=== PATIENT | female | born 1975 | race Caucasian/White ===

== ENCOUNTER → 2021-06-30 11:22 | Outpatient (REF) | payer OTHER, SELFPAY | LOC: ANHLAB 11:22 | PROVIDERS: PCP Family Medicine; Visit Provider Nurse Practitioner | DX: L72.0 Epidermal cyst (principal) | CPT/HCPCS: 88304 ==

== ENCOUNTER 2022-01-11 16:50 | Outpatient (CLI) | payer OTHER, SELFPAY ==
--- NOTE | ~2022-01-11 | XR_ITS ---
EXAM: XR foot RT min 3V DATE: 01/11/2022 17:07 HISTORY: M79.673 - Pain in unspecified foot, lat Rt foot s/p running . COMPARISON: None available. FINDINGS: Normal mineralization. No fracture or dislocation. No lytic or blastic lesion. Plantar ent hesopathy. Mild hallux valgus. No erosion or periosteal change. Soft tissues within normal limits. IMPRESSION: No acute osseous finding in the right foot. Reviewed, dictated and finalized at location K.
== END 2022-01-11 16:51 | disposition home or self-care (01) ==
LOC: ANHIMG 16:54
PROVIDERS: PCP Family Medicine; Visit Provider Physician Assistant
DX: M79.673 Pain in unspecified foot (principal)
CPT/HCPCS: 73630

== ENCOUNTER 2022-04-07 16:03 | Outpatient (CLI) | payer OTHER, SELFPAY ==
--- NOTE | 2022-04-07 16:10 | ECG_ITS ---
Measurements Intervals [place] Rate: 78 P: 48 NC: 180 QRS: 25 QRSD: 94 T: 36 QT: 380 QTc: 435 Interpretive Statements SINUS RHYTHM INCOMPLETE RIGHT BUNDLE BRANCH BLOCK BORDERLINE ECG NO PREVIOUS ECG AVAILABLE FOR COMPARISON Electronically Signed On 04-07-2022 17:30:19 [facility] by Woo Cho D.O.
== END 2022-04-07 16:04 | disposition home or self-care (01) ==
LOC: ANHLAB 16:05
PROVIDERS: PCP Family Medicine; Visit Provider Family Medicine
DX: R79.82 Elevated C-reactive protein (CRP) (principal); R07.9 Chest pain, unspecified; I45.10 Unspecified right bundle-branch block
CPT/HCPCS: 93005

== ENCOUNTER 2022-10-16 00:38 | Day surgery (SDC) | payer OTHER, SELFPAY ==
[2022-10-04 14:07] VITALS: BMI 32.2
[2022-10-16 07:33] VITALS: BP 134/87; PULSE 79; RESP 18; TEMP 36.3; O2SAT 100; BMI 31.7
[2022-10-16] MEDS: LACTATED RINGERS 1,000 ML 150 ML IV CONT (07:43)
--- NOTE | 2022-10-16 08:01 | P.PNAN_ITS ---
Anes - Initial Pre Proc Eval Procedure: Operation Date: 10/16/22 08:30 Proposed Procedures p Screening Colonoscopy - Ankush Lacy MD Date/Time: 10/16/22 08:01 Surgeon: Ankush Lacy MD Pre Op Diagnosis: neoplasm screening Patient Data Age: 47 Gender: F Height: 1.6 m Weight: 81.2 kg Last Vital Signs Temp 36.3 C L 10/16/22 07:33 Pulse 79 10/16/22 07:33 Resp 18 10/16/22 07:33 BP 134/87 10/16/22 07:33 Pulse Ox 100 10/16/22 07:33 O2 Del Method Room Air 10/16/22 07:33 Allergies Allergy/AdvReac Type Severity Reaction Status Date / Time metoclopramide [From Reglan] Allergy Intermediate Anxiety Verified 10/16/22 07:31 meperidine Allergy Unknown UNKNOWN Verified 10/16/22 07:31 MEPERIDINE HCL Allergy Unknown UNKNOWN Uncoded 10/16/22 07:31 Home Medications Medication Instructions Recorded Confirmed Type Ozempic 1 mg IM WEEKLY 10/04/22 10/16/22 History Patient hx anesthesia problems: none Family hx anesthesia problems: none Results Review: All pre-operative results and documents have been reviewed as part of the pre- operative evaluation. [facility], LAT[facility] Past Medical History Medical History Anxiety Hx of migraines Rosacea Family History Family History Grandparent Family history of osteoporosis Family history of migraine headaches Mother Patient's mother is in good health Family history of malignant neoplasm of skin, Onset Age: 72 Father Patient's father is Family history of heart disease in male family member before age 55 Social History Social History Smoking status: Never smoker Second hand tobacco smoke exposure: Yes Alcohol intake: current Drinks per week: 2 Substance use: never Substance use type: does not use Lack of Transportation: No Lack of Food: Never True Current Housing: I Have Housing Concerned About Future Housing: No Difficulty Paying Gas/Electric Bills: No Difficulty Paying for Meds: No Currently Unemployed: No Education: Master's Degree or Higher Difficulty w/ Childcare or Family Care: No Living arrangements: with family Gender identity (if verbalized by the patient): Female Spiritual care concerns: No Anes - Eval Final PreProcedure Day of Procedure 10/16/22 08:01 Patient weight: obese Heart: regular rate and rhythm Lungs: clear to auscultation Airway: Mallampati scale class II Neurological: alert and oriented Last oral intake: >/= 8 hours ASA classification: II Emergent: no Anesthetic plan: proceed Anesthesia type and monitoring: general GIVS and standard monitoring Results Review: All pre-operative results and documents have been reviewed as part of the pre- operative evaluation. Informed Consent: The patient's anesthetic plan and its attendant risks and benefits were discussed with the patient/family/POA. Questions were solicited and answers provided to the satisfaction of the patient/family/POA.
--- NOTE | 2022-10-16 08:34 | PM.HPGS ---
History of Present Illness History of Present Illness Consent: Risks, benefits, and alternatives have been discussed and questions answered. Patient agrees to proceed with procedure. Chief complaint: neoplasm screening Narrative: Steph Fox is a 47 year old female here for first screening colonoscopy Review of Systems Constitutional: Constitutional: Denies headache(s) and Denies weakness Eyes: Eyes: Denies blurry vision ENT: Reports Normal hearing present, Denies headache(s) and Denies neck pain Cardiovascular: Cardiovascular: Denies chest pain and Denies dyspnea Respiratory: Respiratory: Denies dyspnea Gastrointestinal: Gastrointestinal: Reports no additional gastrointestinal complaints Genitourinary: Genitourinary: Denies dysuria Musculoskeletal: Musculoskeletal: Denies neck pain Integumentary/Breasts: Skin/Breast: Denies dry skin Neurologic: Reports Normal hearing present, Denies headache(s) and Denies weakness Psychiatric: Psychiatric: Denies anxiety Endocrine: Endocrine: Denies change in body appearance Hematologic/Lymphatic: Hematologic/Lymphatic: Denies easy bleeding Allergic/Immunologic: Allergic/Immunologic: Denies urticaria PMFSH Past Medical History Medical History (Updated 10/16/22 @ 08:35 by Ankush Lacy MD) Anxiety Colon cancer screening Hx of migraines Rosacea Family History Family History Grandparent Family history of osteoporosis Family history of migraine headaches Mother Patient's mother is in good health Family history of malignant neoplasm of skin, Onset Age: 72 Father Patient's father is Family history of heart disease in male family member before age 55 Social History Social History Smoking status: Never smoker Second hand tobacco smoke exposure: Yes Alcohol intake: current Drinks per week: 2 Substance use: never Substance use type: does not use Lack of Transportation: No Lack of Food: Never True Current Housing: I Have Housing Concerned About Future Housing: No Difficulty Paying Gas/Electric Bills: No Difficulty Paying for Meds: No Currently Unemployed: No Education: Master's Degree or Higher Difficulty w/ Childcare or Family Care: No Living arrangements: with family Gender identity (if verbalized by the patient): Female Spiritual care concerns: No Meds Home Medications and Allergies Home Medications Medication Instructions Recorded Confirmed Type Ozempic 1 mg IM WEEKLY 10/04/22 10/16/22 History Allergies Allergy/AdvReac Type Severity Reaction Status Date / Time metoclopramide [From Reglan] Allergy Intermediate Anxiety Verified 10/16/22 07:31 meperidine Allergy Unknown UNKNOWN Verified 10/16/22 07:31 MEPERIDINE HCL Allergy Unknown UNKNOWN Uncoded 10/16/22 07:31 Vital Signs Vital Signs - 24 hr 10/16/22 07:33 Temperature 97.4 F L Pulse Rate 79 Respiratory Rate 18 Blood Pressure 134/87 Pulse Oximetry 100 Oxygen Delivery Room Air Exam Const: General: comfortable and no acute distress HENMT: Face/Nose/Sinus: Normal nares present Eyes: General: appearance normal, both eyes and all related structures Neck: Neck: no JVD Resp: Auscultation: clear to auscultation bilaterally Cardio: Rate: regular rate Rhythm: regular rhythm GI: Inspection: non-distended GI Palp: Yes Soft to palpation Skin: General skin exam: normal color Neuro: General: gait normal Speech: normal speech Extrem: General: normal to inspection Psych: Mental Status: mental status grossly normal Assessment and Plan Assessment and plan (1) Colon cancer screening: Code(s): Z12.11 - Encounter for screening for malignant neoplasm of colon Status: Acute Assessment and Plan: colonoscopy
[2022-10-16 08:54] VITALS: BP 96/61; PULSE 76; RESP 18; O2SAT 99
[2022-10-16 09:04] VITALS: BP 104/65; PULSE 72; RESP 18; O2SAT 99
[2022-10-16 09:14] VITALS: BP 107/70; PULSE 76; RESP 18; O2SAT 100
== END 2022-10-16 09:30 | disposition home or self-care (01) ==
PROVIDERS: PCP Family Medicine; Visit Provider Internal Medicine Gastroenterology
PROC: 0DJD8ZZ Inspection of Lower Intestinal Tract, Via Natural or Artificial Opening Endoscopic (ICD-10-PCS; CPT 45378; principal; 2022-10-16 08:30)
DX: Z12.11 Encounter for screening for malignant neoplasm of colon (principal); K57.30 Diverticulosis of large intestine without perforation or abscess without bleeding; F41.9 Anxiety disorder, unspecified; E66.9 Obesity, unspecified; Z68.31 Body mass index [BMI] 31.0-31.9, adult
CPT/HCPCS: 45378; J2704; J7120